=== PATIENT | male | born 1975 | race Caucasian/White ===

== ENCOUNTER → 2018-06-05 | Outpatient (CLI) | payer OTHER ==
--- NOTE | 2018-06-05 13:38 | KCIC ---
ABDOMEN LTD History: Right upper quadrant pain Comparison: None. Findings: Multiple sonographic images of the abdomen are submitted. There is no abnormality of the visualized pancreas. There is segmental visualization of the inferior vena cava. Abdominal aortic caliber is within normal limits up to 2.3 cm. No focal hepatic lesion is demonstrated. Hepatic echotexture is within normal limits. Right lobe liver of the liver measured about 16.2 cm longitudinal. Gallbladder is present without intraluminal abnormality, wall thickening, pericholecystic fluid. Right kidney measured 11.1 x 4.8 x 5.7 cm, no hydronephrosis. Common bile duct is within normal limits about 0.3 cm. Impression: 1. No significant abnormality is demonstrated. Electronically signed by: Margarito Tam MD (06/05/2018 1:35 PM) [id number]
== END | disposition home or self-care (01) ==
LOC: KCIC US 12:43
PROVIDERS: ATTEND Nurse Practitioner Family
DX: R10.11 Right upper quadrant pain (principal)
CPT/HCPCS: 76705